=== PATIENT | female | born 1995 | race Caucasian/White ===

== ENCOUNTER 2022-09-18 17:58 | Emergency (ER) | payer MEDICAID ==
[2022-09-18] MEDS ORDERED: Bupivacaine 0.5% 10 ML SDV INJECT ONE (19:08)
[2022-09-18] MEDS ORDERED: Lidocaine 1% with EPINEPHrine 1:100,000 10 ML MDV INJECT ONE (19:08)
[2022-09-18] MEDS ORDERED: Clindamycin HCl 150 MG Cap PO STA (19:09)
[2022-09-18] MEDS ORDERED: Lidocaine 4% Top Soln 50 ML Bottle MUCMEM STA (19:18)
[2022-09-18] MEDS ORDERED: Bupivacaine 0.5% 10 ML SDV ONE (19:33)
== END 2022-09-18 20:00 | disposition home or self-care (01) ==
LOC: JD.ED 17:58
DX: K08.89 Other specified disorders of teeth and supporting structures (principal); F17.210 Nicotine dependence, cigarettes, uncomplicated; Z88.0 Allergy status to penicillin; Z88.2 Allergy status to sulfonamides
CPT/HCPCS: 64400; 99282; A9270; J3490